=== PATIENT | male | born 1975 | race Caucasian/White ===

== ENCOUNTER 2016-09-27 06:34 | Inpatient (IN) | payer OTHER ==
--- NOTE | 2016-09-27 06:49 | CONS ---
DATE OF CONSULTATION: CHIEF COMPLAINT: Chest pain. Dameon is a 41-year-old gentleman with no significant past medical history with smoking and family history of coronary artery disease as coronary risk factors who presented to [facility] having had an episode of syncope. Patient developed chest discomfort while he was shoveling snow yesterday morning. It subsided, went to school. While he was in the class, he felt a little uncomfortable, diaphoretic. Got out of the class and passed out. He got back up on his own. EMS came. They were going to take him to the ER. He said no to them and went home where he started having chest and bilateral arm discomfort due to which his drove him to the emergency room where his initial EKG showed sinus bradycardia with evidence of old inferior wall AR. Rest of his workup was normal. He was started on IV nitro and he became pain free and was admitted to the third floor. His second set of troponin last night came back around 17. He was started on heparin and the third set was further elevated around 30. I have seen the patient in the ICU at [facility] this morning. He is pain free, hemodynamically stable and in no apparent distress. Given the non-ST segment elevation AR that the patient advised had, I advised him to undergo cardiac catheterization. I am going to transfer him over to [facility] and perform it this morning. Past medical history is negative for hypertension, diabetes, dyslipidemia. MEDICATIONS: None. ALLERGIES: None. FAMILY HISTORY: Significant for coronary artery disease in his father. Social history is significant for smoking. There is no history of EtOH abuse or drug abuse. REVIEW OF SYSTEMS: HEENT: Unremarkable. CARDIAC: As described above. RESPIRATORY: Negative. GI: Negative. GENITOURINARY: Negative. ALLERGY/IMMUNOLOGY: Negative. SKIN: Negative. MUSCULOSKELETAL: Negative. ENDOCRINE: Negative. HEMATOLOGICAL: Negative. DERM: Negative. CONSTITUTIONAL: Negative. SEAM SEWER: Negative. ONCOLOGIC: Negative. The rest of the system review is not relevant. On exam, he is comfortable at rest. Vital signs are stable. There is no jugular venous distention. Chest exam reveals good air entry bilaterally. Heart exam reveals first and second heart sounds. No gallop. No murmur. Abdomen is soft. Exam of the extremities did not reveal edema. Peripheral pulses are felt. Rhythm strips show that he had a run of nonsustained VT last night. EKG shows evidence of old inferior wall AR. Labs show that the troponin is elevated. Creatinine is normal. Hemoglobin is normal. White cell count is elevated. ASSESSMENT: 1. Acute non- ST segment elevation myocardial infarction. 2. Syncope probably secondary to ventricular tachycardia. PLAN: Patient will be transferred to [facility] and will undergo cardiac catheterization this morning.
[2016-09-27] MEDS ORDERED: diphenhydrAMINE 50 MG/ML 1 ML VIAL ONE (07:05)
[2016-09-27] MEDS ORDERED: MIDAZOLAM 2 MG/2 ML VIAL ONE (07:05)
[2016-09-27] MEDS ORDERED: diphenhydrAMINE 50 MG/ML 1 ML VIAL IVP ONE (07:05)
[2016-09-27] MEDS ORDERED: MIDAZOLAM 2 MG/2 ML VIAL IVP ONE (07:05)
[2016-09-27] MEDS ORDERED: LIDOCAINE 2% INJ 20 MG/ML (20 ML MDV) ONE (07:06)
[2016-09-27] MEDS ORDERED: LIDOCAINE 2% INJ 20 MG/ML SQ ONE (07:10)
[2016-09-27] MEDS ORDERED: IV FLUID CONTINUATION 1,000 ML IV ONE (07:10)
[2016-09-27] MEDS ORDERED: BIVALIRUDIN BOLUS 250 MG/50 ML IV ONE (07:30)
[2016-09-27] MEDS ORDERED: BIVALIRUDIN 250 MG in SODIUM CHLORIDE 0.9% 50 ML IV ONE (07:31)
[2016-09-27] MEDS ORDERED: PRASUGREL 10 MG TAB ONE (07:32)
[2016-09-27] MEDS ORDERED: PRASUGREL 10 MG TAB PO ONE (07:32)
--- NOTE | 2016-09-27 07:38 | CC ---
DATE OF SERVICE: INDICATION: Non-ST segment elevation HI. PROCEDURE NOTE: After obtaining informed consent, left heart catheterization and coronary angiogram were performed via the right femoral artery using standard Claudia catheters. Patient tolerated the procedure well without any immediate complications. FINDINGS: 1. HEMODYNAMICS: Left ventricular end-diastolic pressure is 12 mm. There is no significant gradient across the aortic valve. 2. LEFT VENTRICULOGRAM: Left ventriculogram was not performed. 3. ANGIOGRAPHIC DATA: LEFT MAIN CORONARY ARTERY: Left main coronary artery is a normal size vessel and is free of stenosis. It divides into left anterior descending coronary artery and circumflex coronary artery. LAD and its branches are free of significant stenosis. Circumflex coronary artery shows a moderate atherosclerotic plaque which seems to be 60% to 70% stenosed in its midportion. Right coronary artery is a large dominant vessel that shows severe diffuse disease both in the proximal and mid segments. In the midportion there is a 95% focal stenosis with an area of plaque rupture, it is a large dominant vessel. CONCLUSION: Acute plaque rupture involving mid right coronary artery with a 95% stenosis with some left to right collaterals and moderate stenosis involving circumflex coronary artery. PLAN: Patient will undergo angioplasty of the right coronary artery by Dr. Quiñonez, the on-call glass vial filler.
[2016-09-27] MEDS ORDERED: IOHEXOL 350 MG/ML 100 ML BOTTLE INJ ONE ×2 (08:01)
[2016-09-27] MEDS ORDERED: NITROGLYCERIN SL TABS 0.4 MG TAB SUBLINGUAL PRN ×2 (08:27→08:29)
[2016-09-27] MEDS ORDERED: RX INFO: IV CONTRAST WAS GIVEN 1 EACH MISC MISCELLANE PRN (08:27)
[2016-09-27] MEDS ORDERED: ZOLPIDEM 5 MG TAB PO PRN (08:27)
[2016-09-27] MEDS ORDERED: MAG HYDROX/AL HYDROX/SIMETH 30 ML CUP PO PRN (08:27)
[2016-09-27] MEDS ORDERED: ASPIRIN 325 MG TAB PO STA (08:29)
[2016-09-27] MEDS ORDERED: ATORVASTATIN 80 MG TAB PO STA (08:29)
[2016-09-27] MEDS ORDERED: SODIUM CHLORIDE 0.9% 1,000 ML in EMPTY BAG 1 BAG IV ONE (08:29)
[2016-09-27] MEDS ORDERED: ALPRAZolam 0.25 MG TAB PO PRN (08:29)
[2016-09-27] MEDS ORDERED: ALPRAZolam 0.5 MG TAB PO PRN (08:29)
[2016-09-27] MEDS ORDERED: SODIUM CHLORIDE 0.9% 1,000 ML IV SCH (08:30)
[2016-09-27] MEDS ORDERED: BIVALIRUDIN 250 MG VIAL IV ONE (08:36)
[2016-09-27] MEDS ORDERED: SODIUM CHLORIDE 0.9% 50 ML BAG ONE (08:36)
--- NOTE | 2016-09-27 09:13 | PTCA ---
DATE OF SERVICE: Mr. Tinoco is a 41-year-old male with no prior documented history of coronary artery disease, who presented to [facility] with chest discomfort, evidence of nonsustained ventricular tachycardia and troponin elevation. He underwent cardiac catheterization by Dr. Blue, was found to have subtotally occluded mid right coronary artery with intracoronary thrombus. In view of that, recommendation made regarding angioplasty and stenting. The procedure as well as the risks and complications were discussed with the patient who is in full understanding and agreement. PROCEDURE: A 6 Vincentian L4 guiding catheter was introduced into the system. After cannulating the ostium of the right coronary artery, a 0.014 balanced medium weight J-wire was advanced across the lesion, positioned distally. Following that, an export catheter was introduced and one aspiration run was done with removal of large thrombus material. Following that, a 2.5 x 12 mm Trek balloon was advanced and one inflation at 8 atmospheres was done. Following that, a 3.0 x 18 mm Xience Alpine stent was deployed, and postdilated at 14 atmospheres. After the last inflation, after appropriate, the balloon and the guidewire were withdrawn back into the guiding catheter. Images were obtained and repeated. Those images reveal stable successful stenting. At that point, the guiding catheter and the wire were removed and a 6 Vincentian tight pigtail catheter was introduced into the left ventricle and a 30 degree CERVANTES view of the left ventricle was obtained. Following that, catheter and sheaths were removed. Hemostasis was obtained with deployment of an Angio-Seal. There was no complication. Patient is returned to his room in stable condition. Of note, patient received Angiomax per protocol as well as oral loading dose of Effient. He has chest discomfort and EKG changes with the inflation. This resulted in the end of the procedure. RESULT: 1. Successful stenting of the mid right coronary artery with reduction in stenosis from 99% with intracoronary thrombus to 0%. 2. Mildly impaired left ventricular systolic function with an ejection fraction of 45% with inferior wall hypokinesis and no significant mitral regurgitation. 3. Left ventricle diastolic pressure was 18 mmHg. RECOMMENDATIONS: Patient to be on continued aspirin, Effient, beta nel, HARI inhibitor and statin. The importance of dual antiplatelet treatment was discussed with the patient and his family and who is in full understanding and agreement.
[2016-09-27 12:32] LABS: Glucose,Whole Blood 93 mg/dL (75-99)
[2016-09-27] MEDS: METOPROLOL TARTRATE 25 MG TAB PO SCH ×2 (13:03→23:13)
[2016-09-27] MEDS: ASPIRIN 81 MG CHEW PO SCH (13:03)
[2016-09-27 19:09] LABS: Basophils # (A) 0.1 k/uL (0-0.2); Basophils % (A) 1 %; CH 31.5; CHCM 32.9; Eosinophils # (A) 0.2 k/uL (0-0.7); Eosinophils % (A) 2 %; HCT 41.6 % (39.0-53.0); HDW 2.42; HGB 13.6 gm/dL (13.0-17.5); Luc # (Auto) 0.11; Luc % (Auto) 1; Lymphocytes # (A) 3.2 k/uL (1.0-4.8); Lymphocytes % (A) 34 %; MCH 31.3 pg (25.0-35.0); MCHC 32.6 g/dL (31.0-37.0); MCV 96.1 fL (80.0-100.0); Mean Platelet Volume 7.5; Monocytes # (A) 0.5 k/uL (0-1.0); Monocytes % (A) 5 %; Neutrophils # (A) 5.4 k/uL (1.3-7.7); Neutrophils % (A) 57 %; RBC 4.33 m/uL (4.30-5.90); RDW 13.2 % (11.5-15.5); WBC 9.3 k/uL (3.8-10.6); WBC (Perox) 9.52
[2016-09-27 19:31] LABS: ALT 70 U/L (21-72); AST 192 U/L (17-59); Alkaline Phosphatase 69 U/L (38-126); Anion Gap 8 mmol/L; Blood Urea Nitrogen 11 mg/dL (9-20); Calcium 8.7 mg/dL (8.4-10.2); Carbon Dioxide 27 mmol/L (22-30); Chloride 106 mmol/L (98-107); Glucose 108 mg/dL (74-99); Non-African American GFR(MDRD) >60 (>60 ml/min/1.73 sqM); Sodium 141 mmol/L (137-145); Total Bilirubin 0.6 mg/dL (0.2-1.3); Total Protein 6.3 g/dL (6.3-8.2)
[2016-09-27] MEDS: LISINOPRIL 5 MG TAB PO SCH (19:59)
--- NOTE | 2016-09-27 20:56 | HP ---
DATE OF ADMISSION: CHIEF COMPLAINT: [id number] white male with a past medical history of smoking 1 pack a day for many years. He was at school studying and ran out of class due to severe diaphoresis and sweating, at which time he passed out in the hallway and was brought to the hospital. His second troponin was elevated. His third troponin was elevated even more. The first one was normal. He was sent from [facility] at that point over to [facility], at which time he was taken to the heart catheterization lab and a stent was placed in the right coronary artery. He was shoveling snow and developed some chest pain while shoveling snow. It subsided. He went to school, where the diaphoresis and syncope happened. EMS came and took him to the ER. He has been having heartburn on and off for many months. It was treated with some Zantac for partial relief and is ( ) if that could be his heart pain in the past. He denies his mom and dad have any heart disease. He is up sitting in a chair, giving answers appropriately at this time. MEDICATIONS AT HOME: None. ALLERGIES: NONE. SOCIAL HISTORY: Smokes a pack a day for many years. No alcohol or illicit drugs. REVIEW OF SYSTEMS: PSYCH: Negative. NEURO: Negative. VASCULAR: Negative. IMMUNE: Negative. INTEGUMENT: Negative. CARDIAC: As mentioned above. : Negative. RN BARIATRIC: Negative. ONCOLOGIC: Negative. PHYSICAL EXAM: Vital signs are reviewed and normal. LUNGS: Clear. CARDIOVASCULAR: S1, S2. ABDOMEN: Soft. HEMATOLOGIC: Negative Homans. VASCULAR: Normal dorsalis pedis, posterior tibial and radial pulse. OPHTHALMOLOGIC: Pupils equal and round and reactive to light and accommodation. PSYCH: Appropriate. NEURO: Cranial nerves are intact. ASSESSMENT: 1. Status post myocardial infarction. Echo is ordered for the morning. 2. Nicotine addiction. 3. Obesity. Risk factor modification are being checked for the blood tests. Please see further orders. He is put in the ICU at [facility].
[2016-09-27 21:36] LABS: Hemoglobin A1C 5.4 % (4.2-6.1)
[2016-09-27] MEDS ORDERED: ACETAMINOPHEN TAB 325 MG TAB PO PRN (23:15)
[2016-09-28 05:47] LABS: CH 31.4; CHCM 32.8; HCT 40.3 % (39.0-53.0); HDW 2.35; HGB 13.2 gm/dL (13.0-17.5); MCH 31.5 pg (25.0-35.0); MCHC 32.8 g/dL (31.0-37.0); MCV 96.3 fL (80.0-100.0); Mean Platelet Volume 6.8; RBC 4.18 m/uL (4.30-5.90); RDW 13.1 % (11.5-15.5)
[2016-09-28 06:26] LABS: Anion Gap 10 mmol/L; Calcium 8.7 mg/dL (8.4-10.2); Carbon Dioxide 24 mmol/L (22-30); Chloride 109 mmol/L (98-107); Cholesterol 190 mg/dL (<200); Glucose 89 mg/dL (74-99); HDL Cholesterol 30 mg/dL (40-60); Non-African American GFR(MDRD) >60 (>60 ml/min/1.73 sqM); Sodium 143 mmol/L (137-145); Triglycerides 145 mg/dL (<150)
[2016-09-28 06:36] LABS: Blood Urea Nitrogen 10 mg/dL (9-20); Phosphorous 3.3 mg/dL (2.5-4.5); Potassium 4.3 mmol/L (3.5-5.1)
[2016-09-28] MEDS: PRASUGREL 10 MG TAB PO SCH ×2 (09:13→09:52)
[2016-09-28] MEDS: ASPIRIN 81 MG CHEW PO SCH ×2 (09:13→09:52)
[2016-09-28] MEDS: LISINOPRIL 5 MG TAB PO SCH ×2 (09:13→18:07)
--- NOTE | 2016-09-28 09:29 | P.PN ---
Subjective Principal diagnosis: Acute coronary syndrome This is a pleasant 41-year-old gentleman who presented to [facility] with a chest discomfort and was diagnosed with acute coronary event. He was brought to [facility] where he underwent a heart catheterization by Dr. Williamson and was found to have severe to assess coronary artery disease. He underwent stenting of the right coronary artery and going to go tomorrow to have stenting of the left circumflex. I'll follow-up with him today, he denies having any chest pain or discomfort or difficulty breathing or heart racing or fluttering. Hemodynamically, the blood pressure has been marginally low. I am going to decrease the dose of lisinopril to 2.5 mg by mouth daily. He continues to be on dual antiplatelet therapy and statin. Objective - Vital Signs Vital signs: Vital Signs Temp 98.3 F 09/28/16 08:00 Pulse 73 09/28/16 08:00 Resp 26 H 09/28/16 08:00 BP 105/59 09/28/16 08:00 Pulse Ox 96 09/28/16 08:00 Intake & Output 09/27/16 09/28/16 09/28/16 18:59 06:59 18:59 Intake Total 846 350 200 Output Total 950 300 250 Balance -104 50 -50 Weight 90.718 kg 90.5 kg Intake: IV 846 100 Sodium Chloride 0.9% 1, 600 100 000 ml @ 100 mls/hr IV . Q10H [facility] Rx#:[id number] Oral 250 200 Output: Urine 950 300 250 Other: Voiding Method Urinal Toilet Toilet # Voids 1 # Bowel Movements 1 - Constitutional General appearance: Present: no acute distress - Respiratory Respiratory: bilateral: CTA - Cardiovascular Rhythm: regular Heart sounds: normal: S1, S2 - Labs CBC & Chem 7: 09/28/16 05:04 09/28/16 05:04 Labs: Abnormal Lab Results - Last 24 Hours (Table) 09/27/16 09/27/16 09/27/16 Range/Units 12:30 18:58 18:58 RBC (4.30-5.90) m/uL Chloride (98-107) mmol/L Glucose 108 H (74-99) mg/dL AST 192 H (17-59) U/L Troponin I 32.100 H* 23.500 H* (0.000-0.034) ng/mL LDL Cholesterol, Calc (0-99) mg/dL HDL Cholesterol (40-60) mg/dL 09/28/16 09/28/16 09/28/16 Range/Units 00:53 05:04 05:04 RBC 4.18 L (4.30-5.90) m/uL Chloride 109 H (98-107) mmol/L Glucose (74-99) mg/dL AST (17-59) U/L Troponin I 20.800 H* (0.000-0.034) ng/mL LDL Cholesterol, Calc 131 H (0-99) mg/dL HDL Cholesterol 30 L (40-60) mg/dL Assessment and Plan Plan: Assessment #1 acute coronary event #2 severe two-vessel CAD Plan #1 continue the current medical treatment #2 decrease the dose of lisinopril to 2.5 mg by mouth daily in view of the hypotension #3 continue the dual antiplatelet therapy and statin #4 awaiting for the echocardiogram.
[2016-09-28] MEDS: LISINOPRIL 2.5 MG TAB PO SCH (09:51)
[2016-09-28] MEDS: METOPROLOL TARTRATE 25 MG TAB PO SCH ×2 (09:51→20:30)
--- NOTE | 2016-09-28 11:11 | ECHOF ---
Referral Reason:mi MEASUREMENTS -------- HEIGHT: 170.2 cm WEIGHT: 90.7 kg BP: RVIDd: 3.1 cm (< 3.3) IVSd: 1.2 cm (0.6 - 1.1) LVIDd: 4.3 cm (3.9 - 5.3) LVPWd: 1.3 cm (0.6 - 1.1) IVSs: 1.2 cm LVIDs: 3.5 cm LVPWs: 1.4 cm LA Diam: 3.2 cm (2.7 - 3.8) LAESV Index (A-L): 24.79 ml/m Ao Diam: 3.0 cm (2.0 - 3.7) AV Cusp: 1.7 cm (1.5 - 2.6) LA Diam: 3.5 cm (2.7 - 3.8) MV EXCURSION: 22.907 mm (> 18.000) MV EF SLOPE: 180 mm/s (70 - 150) EPSS: 0.5 cm MV E Tommy: 0.91 m/s MV DecT: 172 ms MV A Tommy: 0.63 m/s MV E/A Ratio: 1.43 RAP: 5.00 mmHg RVSP: 39.63 mmHg FINDINGS -------- Sinus rhythm. This was a technically adequate study. There is mild concentric left ventricular hypertrophy. Overall left ventricular systolic function is normal with, an EF between 55 - 60 %. The right ventricle is normal in size. Normal LA size by volume 22+/-6 ml/m2. The right atrial size is normal. There is mild aortic valve sclerosis. There is no evidence of aortic regurgitation. Mild mitral regurgitation is present. Mild tricuspid regurgitation present. There is mild pulmonary hypertension. The right ventricular systolic pressure, as measured by Doppler, is 39.63mmHg. There is no pulmonic regurgitation present. The aortic root size is normal. There is no pericardial effusion. CONCLUSIONS -------- 1. There is mild concentric left ventricular hypertrophy. 2. Overall left ventricular systolic function is normal with, an EF between 55 - 60 %. 3. There is mild aortic valve sclerosis. 4. Mild mitral regurgitation is present. 5. Mild tricuspid regurgitation present. 6. There is mild pulmonary hypertension. 7. The right ventricular systolic pressure, as measured by Doppler, is 39.63mmHg. HYPOID GEAR TESTER: Agustina Agrawal RDCS
--- NOTE | 2016-09-28 15:21 | P.PN ---
Subjective Principal diagnosis: 41-year-old who is being seen on rounds. Patient was transferred from [facility] where patient did present to the facility with chest pain. Was diagnosed with acute coronary event. [facility] the with stenting to the right coronary artery. The plan is to stent the left circumflex on the . Currently denying any chest pain when questioning. Denied shortness of breath. Objective - Vital Signs Vital signs: Vital Signs Temp 98.3 F 09/28/16 08:00 Pulse 73 09/28/16 15:00 Resp 26 H 09/28/16 15:00 BP 106/67 09/28/16 14:00 Pulse Ox 97 09/28/16 15:00 Intake & Output 09/27/16 09/28/16 09/28/16 18:59 06:59 18:59 Intake Total 846 350 650 Output Total 950 300 500 Balance -104 50 150 Weight 90.718 kg 90.5 kg Intake: IV 846 100 Sodium Chloride 0.9% 1, 600 100 000 ml @ 100 mls/hr IV . Q10H [facility] Rx#:[id number] Oral 250 650 Output: Urine 950 300 500 Other: Voiding Method Urinal Toilet Toilet # Voids 1 1 # Bowel Movements 1 - Exam Physical exam 41-year-old gentleman resting in bed in no new events Lungs essentially clear adequate air movement no shortness of breath Heart S1-S2 audible regular denying chest pain Abdomen soft nontender Extremities no edema - Labs CBC & Chem 7: 09/28/16 05:04 09/28/16 05:04 Labs: Abnormal Lab Results - Last 24 Hours (Table) 09/27/16 09/27/16 09/28/16 Range/Units 18:58 18:58 00:53 RBC (4.30-5.90) m/uL Chloride (98-107) mmol/L Glucose 108 H (74-99) mg/dL AST 192 H (17-59) U/L Troponin I 23.500 H* 20.800 H* (0.000-0.034) ng/mL LDL Cholesterol, Calc (0-99) mg/dL HDL Cholesterol (40-60) mg/dL 09/28/16 09/28/16 Range/Units 05:04 05:04 RBC 4.18 L (4.30-5.90) m/uL Chloride 109 H (98-107) mmol/L Glucose (74-99) mg/dL AST (17-59) U/L Troponin I (0.000-0.034) ng/mL LDL Cholesterol, Calc 131 H (0-99) mg/dL HDL Cholesterol 30 L (40-60) mg/dL Assessment and Plan Plan: Impression Present on admission chest pain non-ST elevated MO Coronary artery disease 2 vessel right coronary and circumflex Status post stenting to the right coronary artery on the September Syncopal episode likely due to ventricular tachycardia Positive family history of coronary artery disease father Plan Continue with the current plan of care per cardiology service Monitor blood pressure and heart rate will be addressed by cardiology service DVT and GI prophylaxis Further recommendations pending will follow The above dictated assessment and findings were discussed with dr ott Impression and the plan of care have been dictated as directed. Susana Acuña nurse practitioner acting as a scribe for dr ott
[2016-09-28] MEDS: ATORVASTATIN 80 MG TAB PO SCH (20:30)
[2016-09-29] MEDS: ASPIRIN 81 MG CHEW PO SCH (06:05)
[2016-09-29] MEDS: LISINOPRIL 2.5 MG TAB PO SCH (06:05)
[2016-09-29] MEDS: METOPROLOL TARTRATE 25 MG TAB PO SCH ×2 (06:06→21:39)
[2016-09-29] MEDS: PRASUGREL 10 MG TAB PO SCH (06:06)
[2016-09-29] MEDS ORDERED: SODIUM CHLORIDE 0.9% 1,000 ML IV ONE (06:50)
[2016-09-29] MEDS ORDERED: LIDOCAINE 2% INJ 20 MG/ML (20 ML MDV) ONE (06:57)
[2016-09-29] MEDS ORDERED: SODIUM CHLORIDE 0.9% (PF) 10 ML VIAL ONE (06:57)
[2016-09-29] MEDS ORDERED: fentaNYL (PF) 50 MCG/ML 2 ML AMP ONE (06:57)
[2016-09-29] MEDS ORDERED: VERAPAMIL 2.5 MG/ML 2 ML AMP ONE (06:57)
[2016-09-29] MEDS ORDERED: fentaNYL (PF) 50 MCG/ML 2 ML AMP IV ONE (07:02)
[2016-09-29] MEDS: LIDOCAINE 2% INJ 20 MG/ML SQ ONE ×2 (07:06→07:16)
[2016-09-29] MEDS ORDERED: BIVALIRUDIN 250 MG in SODIUM CHLORIDE 0.9% 50 ML IV ONE (07:22)
[2016-09-29] MEDS ORDERED: BIVALIRUDIN BOLUS 250 MG/50 ML IV ONE (07:22)
[2016-09-29] MEDS ORDERED: NITROGLYCERIN 1000MCG/10ML SYRINGE INTRACORON ONE (07:25)
[2016-09-29] MEDS ORDERED: IOHEXOL 350 MG/ML 100 ML BOTTLE INJ ONE (07:34)
[2016-09-29] MEDS ORDERED: MAG HYDROX/AL HYDROX/SIMETH 30 ML CUP PO PRN (07:45)
[2016-09-29] MEDS ORDERED: RX INFO: IV CONTRAST WAS GIVEN 1 EACH MISC MISCELLANE PRN (07:45)
[2016-09-29] MEDS ORDERED: SODIUM CHLORIDE 0.9% 1,000 ML IV SCH (07:45)
[2016-09-29] MEDS ORDERED: NITROGLYCERIN SL TABS 0.4 MG TAB SUBLINGUAL PRN (07:45)
[2016-09-29] MEDS ORDERED: ASPIRIN 81 MG CHEW PO SCH (09:00)
--- NOTE | 2016-09-29 10:22 | PTCA ---
DATE OF SERVICE: Mr. Tinoco is a 41-year-old male with a history of chronic tobacco use who presented 2 days ago with a non- ST segment elevation myocardial infarction was found to have subtotally occluded right coronary artery underwent stenting of that vessel, but at the same time he was found to have significant obstructive disease involving the left circumflex. In view of that, recommendations were made regarding angioplasty and stenting. The procedure as well as risks and complications were discussed with the patient who is in full understanding and agreement. PROCEDURE: Patient was brought to the catheter builder in fasting semi-sedated after using fentanyl and Benadryl. He was draped and prepped in conventional fashion. Using Xylocaine anesthesia and Seldinger technique, attempts to cannulate the right radial artery were unsuccessful because of severe spasm. The wire would not advance. At that point using Xylocaine anesthesia and Seldinger technique, a 6-Luxembourgish sheath was introduced in the left femoral artery. Left coronary angiography was performed using 6-Luxembourgish FR4 guiding catheter. After cannulating the left main, a 0.014 balanced medium weight J-wire was advanced across the lesion, positioned distally. Then a 2.75 x 28 mm Xience Alpine stent was deployed, postdilated at 14 atmospheres. After the last inflation, after appropriate wait, the balloon and the guidewire were withdrawn back in the guiding catheter. Images were obtained and repeated. Those images reveal stable successful stenting. At that point a diagnostic 6-Luxembourgish right Claudia catheter was introduced in the system and images of the right coronary artery was performed. Following that, catheter and sheaths were removed. Hemostasis was obtained with deployment of an Angio-Seal. There were no immediate complications. Patient was returned to his room in stable condition. Of note, the patient received Angiomax per protocol. He had no chest pain or EKG changes with the inflations. RESULTS: 1. Successful stenting of a long segment of the proximal left circumflex with reduction in stenosis from 70% to 0%. 2. Patent stented segment of the right coronary artery with no significant obstructive disease. RECOMMENDATION: Patient will be continued on aspirin, Effient, beta nel and statin. The importance of dual antiplatelet treatment was discussed with the patient and his family and are in full understanding and agreement.
[2016-09-29 13:50] VITALS: BMI 32.2
--- NOTE | 2016-09-29 14:10 | P.PN ---
Subjective 41-year-old being seen on rounds. Patient today underwent a successful stenting of a long segment of the proximal left circumflex per interventional cardiology Dr. Quiñonez. Patient currently is resting in bed denies any chest pain dizziness or lightheadedness. Patient had the previous day has undergone a stent to the RCA Objective - Vital Signs Vital signs: Vital Signs Temp 97.9 F 09/29/16 11:51 Pulse 78 09/29/16 06:01 Resp 16 09/29/16 11:51 BP 130/74 09/29/16 11:51 Pulse Ox 96 09/29/16 11:51 Intake & Output 09/28/16 09/29/16 09/29/16 18:59 06:59 18:59 Intake Total 944 824 8556.5 Output Total 751 500 250 Balance 169 120 906.5 Weight 93.4 kg 93.4 kg Intake: IV 200 21.5 Intake, IV Titration 275 Amount Sodium Chloride 0.9% 1, 275 000 ml @ 100 mls/hr IV . Q10H [facility] Rx#:[id number] Oral 920 420 860 Output: Urine 750 500 250 Stool 1 Other: Voiding Method Toilet Toilet Toilet # Voids 1 - Exam Physical exam 41-year-old male sitting up in bed appears in no acute distress denying chest pain denying dizziness lightheadedness Lungs essentially clear with adequate air movement Heart S1-S2 audible and regular denying chest pain abdomen soft nontender no nausea no vomiting Extremities no edema - Labs CBC & Chem 7: 09/28/16 05:04 09/28/16 05:04 Assessment and Plan Plan: Impression Present on admission chest pain non-ST elevated [place] Coronary artery disease 2 vessel right coronary and circumflex Status post stenting to the right coronary artery on the September Syncopal episode likely due to ventricular tachycardia Positive family history of coronary artery disease father Status post stenting left circumflex September 29 Plan Continue with the current plan of care per cardiology service Monitor blood pressure and heart rate will be addressed by cardiology service DVT and GI prophylaxis Prepped for probable discharge in the next 24 hours if okay with cardiology service Further recommendations pending will follow The above dictated assessment and findings were discussed with dr ott Impression and the plan of care have been dictated as directed. Susana Acuña nurse practitioner acting as a scribe for dr ott
[2016-09-29] MEDS ORDERED: ZOLPIDEM 5 MG TAB PO PRN (21:00)
[2016-09-29] MEDS: ATORVASTATIN 80 MG TAB PO SCH (21:39)
[2016-09-30 06:05] LABS: Glucose,Whole Blood 90 mg/dL (75-99)
[2016-09-30 07:03] LABS: Anion Gap 10 mmol/L; Blood Urea Nitrogen 10 mg/dL (9-20); Calcium 9.3 mg/dL (8.4-10.2); Carbon Dioxide 26 mmol/L (22-30); Chloride 108 mmol/L (98-107); Glucose 95 mg/dL (74-99); Non-African American GFR(MDRD) >60 (>60 ml/min/1.73 sqM); Potassium 4.4 mmol/L (3.5-5.1); Sodium 144 mmol/L (137-145)
[2016-09-30] MEDS ORDERED: CLOPIDOGREL 75 MG TAB PO SCH (09:00)
[2016-09-30] MEDS: ASPIRIN 81 MG CHEW PO SCH (09:04)
[2016-09-30] MEDS: LISINOPRIL 2.5 MG TAB PO SCH (09:05)
[2016-09-30] MEDS: METOPROLOL TARTRATE 25 MG TAB PO SCH (09:05)
[2016-09-30 09:12] VITALS: BP 114/59; PULSE 82; RESP 18; TEMP 98.4
--- NOTE | 2016-09-30 10:25 | P.PN ---
Subjective Principal diagnosis: Acute coronary syndrome This is a pleasant 41-year-old gentleman who presented to [facility] with a chest discomfort and was diagnosed with acute coronary event. He was brought to [facility] where he underwent a heart catheterization by Dr. Williamson and was found to have severe to assess coronary artery disease. He underwent stenting of the right coronary artery and also stenting of the left circumflex. On follow-up with him today, he denies having any chest pain or discomfort or difficulty breathing. Both groins seems to be soft and nontender and without any bruises. From the cardiovascular standpoint of view, the patient can be discharged home. Objective - Vital Signs Vital signs: Vital Signs Temp 98.4 F 09/30/16 08:00 Pulse 82 09/30/16 08:00 Resp 18 09/30/16 08:00 BP 114/59 09/30/16 08:00 Pulse Ox 98 09/30/16 08:00 Intake & Output 09/29/16 09/30/16 09/30/16 18:59 06:59 18:59 Intake Total 2236.5 236 Output Total 900 300 Balance 1336.5 -300 236 Weight 93.4 kg 93.6 kg Intake: IV 21.5 Intake, IV Titration 675 Amount Sodium Chloride 0.9% 1, 675 000 ml @ 100 mls/hr IV . Q10H [facility] Rx#:[id number] Oral 1540 236 Output: Urine 900 300 Other: Voiding Method Toilet # Voids 2 - Constitutional General appearance: Present: no acute distress - Respiratory Respiratory: bilateral: CTA - Cardiovascular Rhythm: regular Heart sounds: normal: S1, S2 - Labs CBC & Chem 7: 09/28/16 05:04 09/30/16 05:58 Labs: Abnormal Lab Results - Last 24 Hours (Table) 09/30/16 Range/Units 05:58 Chloride 108 H (98-107) mmol/L Assessment and Plan Plan: Assessment #1 acute coronary event #2 severe two-vessel CAD Plan #1 continue the current medical treatment #2 the patient can be discharged home.
--- NOTE | 2016-09-30 11:10 | P.DS ---
Providers Date of admission: 09/27/16 07:21 Expected date of discharge: 09/30/16 Attending physician: Irvin Jaimes Consults: 09/27/16 08:27 Consult Physician Routine Consulting Provider: Thea Alvarez Consult Reason/Comments: Post Interventional patient Do you want consulting provider notified?: Already Contacted 09/29/16 07:45 Consult Physician Routine Consulting Provider: Thea Alvarez Consult Reason/Comments: Post Interventional patient Do you want consulting provider notified?: Already Contacted Primary care physician: [facility] Course: Acute coronary syndrome This is a pleasant 41-year-old gentleman who presented to [facility] with a chest discomfort and was diagnosed with acute coronary event. He was brought to [facility] where he underwent a heart catheterization by Dr. Williamson and was found to have severe to assess coronary artery disease. He underwent stenting of the right coronary artery and also stenting of the left circumflex. On follow-up with him today, he denies having any chest pain or discomfort or difficulty breathing. Both groins seems to be soft and nontender and without any bruises. Procedures: Left heart catheterization Patient Condition at Discharge: Good Plan - Discharge Summary Discharge Medication List No Known Home Medications [No Known Home Medications] 09/27/16 [History] Follow up Appointment(s)/Referral(s): Will Blue MD [STAFF PHYSICIAN] - 1 Week Patient Instructions/Handouts: Coronary Artery Disease (GEN), Myocardial Infarction (DC), Coronary Artery Disease (DC) Activity/Diet/Wound Care/Special Instructions: Cardiac diet Discharge Disposition: HOME SELF-CARE
== END 2016-09-30 13:02 | disposition home or self-care (01) | DRG 247 ==
LOC: 2ORMAIN 07:21 → 6ICU 12:17 → 6SEL 09-28 18:00
PROVIDERS: ADMIT Family Medicine; ATTEND Family Medicine
PROC: B2111ZZ Fluoroscopy of Multiple Coronary Arteries using Low Osmolar Contrast (ICD-10-PCS; 2016-09-27)
PROC: 027034Z Dilation of Coronary Artery, One Artery with Drug-eluting Intraluminal Device, Percutaneous Approach (ICD-10-PCS; principal; 2016-09-27 07:03)
PROC: 4A023N7 Measurement of Cardiac Sampling and Pressure, Left Heart, Percutaneous Approach (ICD-10-PCS; 2016-09-27 07:03)
PROC: 027034Z Dilation of Coronary Artery, One Artery with Drug-eluting Intraluminal Device, Percutaneous Approach (ICD-10-PCS; 2016-09-29 07:00)
DX: I21.4 Non-ST elevation (NSTEMI) myocardial infarction (principal); I47.2 Ventricular tachycardia; I25.10 Atherosclerotic heart disease of native coronary artery without angina pectoris; F17.210 Nicotine dependence, cigarettes, uncomplicated; E66.9 Obesity, unspecified; Z71.3 Dietary counseling and surveillance; Z68.32 Body mass index [BMI] 32.0-32.9, adult; Z82.49 Family history of ischemic heart disease and other diseases of the circulatory system
CPT/HCPCS: 80048; 80053; 80061; 83036; 83735; 84100; 84443; 84484; 85025; 85027; 85347; 93306; 93454; 93458; 93799

== ENCOUNTER → 2017-03-13 | Outpatient (CLI) | payer OTHER ==
[2017-03-13 07:56] LABS: ALT 41 U/L (21-72); AST 28 U/L (17-59); Cholesterol 236 mg/dL (<200); HDL Cholesterol 44 mg/dL (40-60); Triglycerides 296 mg/dL (<150)
== END | disposition home or self-care (01) ==
LOC: LABWHC1 06:40
PROVIDERS: ATTEND Internal Medicine Cardiovascular Disease
DX: E78.2 Mixed hyperlipidemia (principal)
CPT/HCPCS: 36415; 80061; 84450; 84460

== ENCOUNTER → 2021-11-07 | Outpatient (CLI) | payer MEDICAID ==
[2021-11-07 18:37] LABS: ALT 22 U/L (10-49); AST 20 U/L (14-35); LDL Cholesterol,Calculated 109.8 mg/dL (0.0-131.0)
== END | disposition home or self-care (01) ==
LOC: LABWHC1 11:40
PROVIDERS: ATTEND Internal Medicine Cardiovascular Disease
DX: E78.2 Mixed hyperlipidemia (principal)
CPT/HCPCS: 36415; 80061; 84450; 84460

== ENCOUNTER 2021-12-18 10:00 | Emergency (ER) | payer MEDICAID ==
[2021-12-18 11:18] LABS: Potassium 4.3 mmol/L (3.5-5.1)
[2021-12-18 11:19] LABS: ALT 32 U/L (4-49); AST 35 U/L (17-59); African American GFR (CKD) >90 (>60 ml/min/1.73 sqM); Albumin 4.6 g/dL (3.5-5.0); Alkaline Phosphatase 107 U/L (38-126); Amylase 71 U/L (30-110); Anion Gap 10 mmol/L; Blood Urea Nitrogen 15 mg/dL (9-20); Calcium 9.3 mg/dL (8.4-10.2); Carbon Dioxide 21 mmol/L (22-30); Chloride 109 mmol/L (98-107); Glucose 145 mg/dL (74-99); Lipase 135 U/L (23-300); Non-African American GFR(CKD) >90 (>60 ml/min/1.73 sqM); Sodium 140 mmol/L (137-145); Total Protein 7.8 g/dL (6.3-8.2)
[2021-12-18 11:20] VITALS: BP 152/96; PULSE 101; RESP 14; TEMP 98.6
[2021-12-18 11:25] LABS: Basophils % (A) 0 %; Eosinophils # (A) 0.1 k/uL (0-0.7); Eosinophils % (A) 1 %; HCT 50.3 % (39.0-53.0); HGB 16.6 gm/dL (13.0-17.5); Lymphocytes # (A) 0.4 k/uL (1.0-4.8); Lymphocytes % (A) 3 %; MCH 31.3 pg (25.0-35.0); MCV 94.6 fL (80.0-100.0); Mean Platelet Volume 7.1; Monocytes # (A) 0.2 k/uL (0-1.0); Monocytes % (A) 2 %; Neutrophils # (A) 12.2 k/uL (1.3-7.7); Neutrophils % (A) 94 %; Platelet Count 341 k/uL (150-450); RBC 5.31 m/uL (4.30-5.90); RDW 14.4 % (11.5-15.5)
[2021-12-18] MEDS ORDERED: SODIUM CHLORIDE 0.9% 1,000 ML IV ONE (11:28)
[2021-12-18] MEDS ORDERED: ONDANSETRON 4 MG/2 ML VIAL IVP STA (11:28)
[2021-12-18] MEDS ORDERED: SODIUM CHLORIDE 0.9% 500 ML 500 ML IV ONE (11:28)
--- NOTE | 2021-12-18 11:39 | ED ---
General Adult HPI - General Chief complaint: Nausea/Vomiting/Diarrhea Stated complaint: NVD/SOB Time Seen by Provider: 12/18/21 11:11 Source: patient, RN notes reviewed Mode of arrival: ambulatory Limitations: no limitations - History of Present Illness Initial comments: This a 46-year-old male presents emergency Department chief complaint of nausea vomiting diarrhea, shortness of breath. Patient states symptoms started abruptly last night. Patient states that he feels he may have ate something. Patient states that he has mild abdominal cramping no localized severe pain. He denies any chest pain but states that he's felt short of breath primarily when his been vomiting. Patient has any flank pain no dysuria no hematuria denies any hematemesis or coffee-ground emesis. He reports subjective fever or chills. - Related Data Previous Rx's Medication Instructions Recorded Aspirin 81 mg PO DAILY #30 chewable 09/30/16 Atorvastatin Calcium [Lipitor] 80 mg PO HS #30 tablet 09/30/16 Clopidogrel [Plavix] 75 mg PO DAILY #30 tablet 09/30/16 Metoprolol Tartrate [Lopressor] 25 mg PO BID #30 tablet 09/30/16 Nitroglycerin Sl Tabs [Nitrostat] 0.4 mg SUBLINGUAL Q5M PRN #100 tab 09/30/16 lisinopriL [Zestril] 2.5 mg PO DAILY #30 tab 09/30/16 Ondansetron Odt [Zofran Odt] 4 mg PO Q8HR PRN #10 tab 12/18/21 Allergies Allergy/AdvReac Type Severity Reaction Status Date / Time No Known Allergies Allergy Verified 12/18/21 10:44 Review of Systems ROS Statement: Those systems with pertinent positive or pertinent negative responses have been documented in the HPI. ROS Other: All systems not noted in ROS Statement are negative. Past Medical History Past Medical History: No Reported History Additional Past Medical History / Comment(s): 09/27/16 Pt presented to [facility] with chest discomfort/sycope/nonsustained Vtach. Transferred to [facility] and went to medical lab specialist for RCA stenting. History of Any Multi-Drug Resistant Organisms: None Reported Past Surgical History: Heart Catheterization With Stent, Tonsillectomy Past Anesthesia/Blood Transfusion Reactions: No Reported Reaction Date of Last Stent Placement:: 09/27/16 Past Psychological History: Depression Smoking Status: Never smoker Past Alcohol Use History: Occasional Past Drug Use History: None Reported - Past Family History Father Family Medical History: Coronary Artery Disease (CAD) Additional Family Medical History / Comment(s): Father has cardiac stents. Pt states he was diagnosed with heart disease while in his 70's. Mother Family Medical History: Eye Disorder, Musculoskeletal Disorder, Neurologic Disorder Additional Family Medical History / Comment(s): Mother had glaucoma and AMS General Exam Limitations: no limitations General appearance: alert, in no apparent distress Head exam: Present: atraumatic, normocephalic, normal inspection Eye exam: Present: normal appearance, PERRL, EOMI. Absent: scleral icterus, conjunctival injection, periorbital swelling Neck exam: Present: normal inspection, full ROM. Absent: tenderness, meningismus, lymphadenopathy Respiratory exam: Present: normal lung sounds bilaterally. Absent: respiratory distress, wheezes, rales, rhonchi, stridor Cardiovascular Exam: Present: normal rhythm, tachycardia, normal heart sounds. Absent: systolic murmur, diastolic murmur, rubs, gallop, clicks GI/Abdominal exam: Present: soft, normal bowel sounds. Absent: distended, tenderness, guarding, rebound, rigid Course Vital Signs 12/18/21 12/18/21 10:40 11:18 Temperature 98.9 F 98.6 F Pulse Rate 114 H 101 H Respiratory 20 14 Rate Blood Pressure 141/96 152/96 O2 Sat by Pulse 96 96 Oximetry EKG Findings - EKG Comments: EKG Findings:: EKG performed at 10:47 sinus tachycardia with a rate of 107 MI 129 QRS 89 QT/QTC 317/379 there is inverted T-wave in lead 3, Q waves noted 2 and 3 Medical Decision Making - Medical Decision Making 46-year-old male presented for nausea vomiting diarrhea. Patient was hydrated, had labs which are unremarkable. He was given antiemetics and fluids to scream improved patient will be discharged in stable condition with return parameters discussed. - Lab Data Result diagrams: 12/18/21 11:02 12/18/21 11:02 Lab Results 12/18/21 12/18/21 12/18/21 Range/Units 11:02 11:02 11:02 WBC 13.0 H (3.8-10.6) k/uL RBC 5.31 (4.30-5.90) m/uL Hgb 16.6 (13.0-17.5) gm/dL Hct 50.3 (39.0-53.0) % MCV 94.6 (80.0-100.0) fL MCH 31.3 (25.0-35.0) pg MCHC 33.0 (31.0-37.0) g/dL RDW 14.4 (11.5-15.5) % Plt Count 341 (150-450) k/uL MPV 7.1 Neutrophils % 94 % Lymphocytes % 3 % Monocytes % 2 % Eosinophils % 1 % Basophils % 0 % Neutrophils # 12.2 H (1.3-7.7) k/uL Lymphocytes # 0.4 L (1.0-4.8) k/uL Monocytes # 0.2 (0-1.0) k/uL Eosinophils # 0.1 (0-0.7) k/uL Basophils # 0.0 (0-0.2) k/uL PT 10.4 (9.0-12.0) sec INR 1.0 (<1.2) APTT 23.1 (22.0-30.0) sec D-Dimer 0.27 (<0.60) mg/L FEU Sodium 140 (137-145) mmol/L Potassium 4.3 (3.5-5.1) mmol/L Chloride 109 H (98-107) mmol/L Carbon Dioxide 21 L (22-30) mmol/L Anion Gap 10 mmol/L BUN 15 (9-20) mg/dL Creatinine 0.82 (0.66-1.25) mg/dL Est GFR (CKD-EPI)AfAm >90 (>60 ml/min/1.73 sqM) Est GFR (CKD-EPI)NonAf >90 (>60 ml/min/1.73 sqM) Glucose 145 H (74-99) mg/dL Calcium 9.3 (8.4-10.2) mg/dL Total Bilirubin 1.0 (0.2-1.3) mg/dL AST 35 (17-59) U/L ALT 32 (4-49) U/L Alkaline Phosphatase 107 (38-126) U/L Troponin I (0.000-0.034) ng/mL Total Protein 7.8 (6.3-8.2) g/dL Albumin 4.6 (3.5-5.0) g/dL Amylase 71 (30-110) U/L Lipase 135 (23-300) U/L 12/18/21 Range/Units 11:02 WBC (3.8-10.6) k/uL RBC (4.30-5.90) m/uL Hgb (13.0-17.5) gm/dL Hct (39.0-53.0) % MCV (80.0-100.0) fL MCH (25.0-35.0) pg MCHC (31.0-37.0) g/dL RDW (11.5-15.5) % Plt Count (150-450) k/uL MPV Neutrophils % % Lymphocytes % % Monocytes % % Eosinophils % % Basophils % % Neutrophils # (1.3-7.7) k/uL Lymphocytes # (1.0-4.8) k/uL Monocytes # (0-1.0) k/uL Eosinophils # (0-0.7) k/uL Basophils # (0-0.2) k/uL PT (9.0-12.0) sec INR (<1.2) APTT (22.0-30.0) sec D-Dimer (<0.60) mg/L FEU Sodium (137-145) mmol/L Potassium (3.5-5.1) mmol/L Chloride (98-107) mmol/L Carbon Dioxide (22-30) mmol/L Anion Gap mmol/L BUN (9-20) mg/dL Creatinine (0.66-1.25) mg/dL Est GFR (CKD-EPI)AfAm (>60 ml/min/1.73 sqM) Est GFR (CKD-EPI)NonAf (>60 ml/min/1.73 sqM) Glucose (74-99) mg/dL Calcium (8.4-10.2) mg/dL Total Bilirubin (0.2-1.3) mg/dL AST (17-59) U/L ALT (4-49) U/L Alkaline Phosphatase (38-126) U/L Troponin I <0.012 (0.000-0.034) ng/mL Total Protein (6.3-8.2) g/dL Albumin (3.5-5.0) g/dL Amylase (30-110) U/L Lipase (23-300) U/L Disposition Clinical Impression: Gastroenteritis Disposition: HOME SELF-CARE Condition: Stable Instructions (If sedation given, give patient instructions): Gastroenteritis (ED) Additional Instructions: Please return to the Emergency Department if symptoms worsen or any other concerns. Prescriptions: Ondansetron Odt [Zofran Odt] 4 mg PO Q8HR PRN #10 tab PRN Reason: Nausea Is patient prescribed a controlled substance at d/c from ED?: No Referrals: Rosi Abebe MD [Primary Care Provider] - 1-2 days Time of Disposition: 12:18
[2021-12-18 11:43] LABS: Partial Thromboplastin Time 23.1 sec (22.0-30.0); Prothrombin Time 10.4 sec (9.0-12.0)
== END 2021-12-18 13:37 | disposition home or self-care (01) ==
LOC: EC 10:00
DX: K52.9 Noninfective gastroenteritis and colitis, unspecified (principal); F32.A Depression, unspecified; Z79.82 Long term (current) use of aspirin; Z79.02 Long term (current) use of antithrombotics/antiplatelets
CPT/HCPCS: 99285; 96374; 96361 ×2; 36415; 85379; 80053; 82150; 83690; 84484; 85025; 85610; 85730; J2405